=== PATIENT | male | born 1945 | race African-American/Black ===

== ENCOUNTER 2023-09-05 23:03 | Emergency (ER) | payer OTHER ==
[~2023-09-05] VITALS: Ht 188 cm; Wt 76.3 kg
[2023-09-05] MEDS ORDERED: IPRATROPIUM BROMIDE 0.5 MG/2.5 ML NEB SOLUTION NEB ONE (23:30)
[2023-09-05] MEDS ORDERED: ALBUTEROL SULFATE 2.5 MG/0.5 ML NEB SOLUTION NEB ONE (23:30)
[2023-09-05 23:35] VITALS: PULSE 60; RESP 24; O2SAT 100
[2023-09-05 23:42] VITALS: PULSE 60; RESP 24; O2SAT 100
[2023-09-05 23:50] VITALS: PULSE 70; RESP 24; O2SAT 99
[2023-09-05] MEDS ORDERED: TIOT4MIS3 IH (23:50)
[2023-09-05] MEDS ORDERED: WARF5TAB9 PO (23:50)
[2023-09-05] MEDS ORDERED: TAMS0.4C94 PO (23:50)
[2023-09-05] MEDS ORDERED: PILO4OS OU (23:50)
[2023-09-05] MEDS ORDERED: ACET-3385 PO (23:50)
[2023-09-05] MEDS ORDERED: DONE-51 PO (23:50)
[2023-09-05] MEDS ORDERED: WARF3TAB8 PO (23:50)
[2023-09-05] MEDS ORDERED: ALBU90AE2 IH (23:50)
[2023-09-05] MEDS ORDERED: FINA-27 PO (23:50)
[2023-09-05] MEDS ORDERED: ATOR40TA28 PO (23:50)
[2023-09-05] MEDS ORDERED: AMLO-257 PO (23:50)
[2023-09-05] MEDS ORDERED: ASCO500 PO (23:50)
[2023-09-05] MEDS ORDERED: MULT-413 PO (23:50)
[2023-09-05] MEDS ORDERED: SULF-261 PO (23:50)
[2023-09-05] MEDS ORDERED: FLUO10CA24 PO (23:50)
[2023-09-05] MEDS ORDERED: ALLO-97 PO (23:50)
[2023-09-05] MEDS ORDERED: DORZ1DRO7 OU (23:50)
[2023-09-05] MEDS ORDERED: CYAN500T56 PO (23:50)
[2023-09-05] MEDS ORDERED: BRIM5DRO9 OU (23:50)
[2023-09-05 23:53] VITALS: TEMP 98.2
[2023-09-05 23:58] LABS: BASOPHILS % (AUTO) 0.9 % (0.0-2.0); EOSINOPHILS % (AUTO) 2.3 % (1.0-6.0); HEMOGLOBIN 11.8 g/dL (13.5-17.5); LYMPHOCYTES # (AUTO) 1.3 K/uL (1.0-4.8); LYMPHOCYTES % (AUTO) 17.7 % (22.0-44.0); MEAN CORPUSCULAR HEMOGLOBIN 27.2 pg (26.0-34.0); MEAN CORPUSCULAR HGB CONC 31.8 G/dL (31.0-37.0); MEAN CORPUSCULAR VOLUME 85 fL (80-100); MONOCYTES # (AUTO) 0.5 K/uL (0.1-1.0); MONOCYTES % (AUTO) 6.4 % (2.0-9.0); NEUTROPHILS # (AUTO) 5.4 K/uL (1.8-7.7); NEUTROPHILS % (AUTO) 72.7 % (40.0-70.0); PLATELET COUNT (AUTO) 155 K/uL (150-450); RED BLOOD CELL COUNT(AUTO) 4.34 MIL/uL (4.50-5.90); RED CELL DISTRIBUTION WIDTH 19.2 % (11.5-14.5); WHITE BLOOD COUNT (AUTO) 7.4 K/uL (4.5-11.0)
[2023-09-06 00:05] LABS: ANION GAP 7 mmol/L (8-16); CALCIUM, TOTAL 10.2 mg/dL (8.8-10.5); CARBON DIOXIDE 26 mmol/L (22-29); CHLORIDE 109 mmol/L (98-107); CREATININE 1.24 mg/dL (0.60-1.30); GLOMERULAR FILTR. RATE CALC > 60 mL/min (>60); GLUCOSE,RANDOM 89 mg/dL (70-110); POTASSIUM 3.6 mmol/L (3.5-5.1); SODIUM SERUM 142 mmol/L (136-145); UREA NITROGEN, BLOOD 14 mg/dL (7-18)
[2023-09-06 00:11] LABS: INR 3.1 (0.9-1.1)
[2023-09-06 00:13] LABS: TROPONIN I-HIGH SENSITIVITY 25 ng/L (<76)
[2023-09-06 00:14] LABS: ALANINE AMINOTRANSFERASE 21 U/L (12-78); ALBUMIN 2.9 g/dL (3.4-5.0); ALKALINE PHOSPHATASE 111 U/L (46-116); ASPARTATE AMINOTRANSFERASE 19 U/L (15-37); BILIRUBIN,TOTAL 0.4 mg/dL (0.1-1.0); CREATINE KINASE, TOTAL ONLY 119 U/L (39-308); TOTAL PROTEIN, SERUM 6.9 g/dL (6.4-8.2)
[2023-09-06 00:19] LABS: B-TYPE NATRIURETIC PEPTIDE 191 pg/mL (0-100)
[2023-09-06 01:23] LABS: COVID AG,FIA SOURCE NASAL SWAB
[2023-09-06 01:43] LABS: INFLUENZA TYPE A NEGATIVE FOR TYPE A (NEGATIVE); INFLUENZA TYPE B NEGATIVE FOR TYPE B (NEGATIVE); SARS-COV2 (COVID) ANTIGEN,FIA Negative (Negative)
[2023-09-06 03:01] VITALS: BP 113/49; PULSE 58; RESP 22
[2023-09-06] MEDS ORDERED: CefTRIAXone 1 GM/DEXTROSE 50 ML IV ONE (03:45)
== END 2023-09-06 04:30 | disposition short-term general hospital (02) ==
LOC: EMS 23:05
DX: J18.9 Pneumonia, unspecified organism (principal); R53.1 Weakness; Z20.822 Contact with and (suspected) exposure to COVID-19
CPT/HCPCS: 71045; 72125; 80053; 82550; 83605; 83880; 84145; 84484; 85025; 85610; 85730; 87040; 87804; 93005; 94640; 96365; 99291; 36415-L1; 36415-TC; 70450; 70450-TC; J7613